=== PATIENT | male | born 1950 | race Native Hawaiian/Other Pacific Islander ===

== ENCOUNTER 2017-10-11 15:02 | Inpatient (IN) | payer OTHER, MEDICARE ==
[~2017-10-11] VITALS: Ht 177.8 cm; Wt 103.2 kg
[2017-10-11 15:24] VITALS: BP 142/80; PULSE 105; RESP 18; O2SAT 95
[2017-10-11] MEDS ORDERED: TETANUS/DIPHTHERIA TOXOID ADULT 0.5 ML VIAL IM ONE (15:30)
[2017-10-11] MEDS ORDERED: SILVER SULFADIAZINE 1% CR 400 GM JAR TOPICAL ONE (15:30)
[2017-10-11] MEDS ORDERED: FLUO1TAB3 PO (15:32)
[2017-10-11] MEDS ORDERED: LISI-515 PO (15:32)
[2017-10-11] MEDS ORDERED: METF500T PO (15:32)
[2017-10-11] MEDS ORDERED: HYDR12.56 PO (15:32)
[2017-10-11] MEDS ORDERED: METOCLOPRAMIDE HCL 10 MG/2 ML VIAL IV PUSH ONE (15:45)
[2017-10-11] MEDS ORDERED: SODIUM CHLOR 0.9% 1000 ML INJ 1,000 ML IV SCH ×2 (15:45→20:00)
[2017-10-11] MEDS ORDERED: MORPHINE SULFATE 4 MG/ML INJ IV PUSH ONE ×2 (15:45→17:45)
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
[2017-10-11] MEDS ORDERED: PROPOFOL 200 MG/20 ML AMP IV ONE (16:30)
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
[2017-10-11 17:05] VITALS: O2SAT 96
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
[2017-10-11 17:56] LABS: AUTOMATED NEUTROPHIL # 13.1 TH/MM3 (1.8-7.7); BASOPHIL % 0.3 % (0.0-2.0); EOSINOPHIL # 0.1 TH/MM3 (0-0.4); EOSINOPHIL % 0.4 % (0.0-4.0); HEMATOCRIT 37.2 % (39.0-51.0); HEMOGLOBIN 12.8 GM/DL (13.0-17.0); LYMPHOCYTE # 1.1 TH/MM3 (1.0-4.8); MEAN CORPUSCULAR HEMOGLOBIN 32.3 PG (27.0-34.0); MEAN CORPUSCULAR HGB CONC 34.3 % (32.0-36.0); MEAN PLATELET VOLUME 8.3 FL (7.0-11.0); MONO % 6.8 % (0.0-8.0); NEUT % 85.5 % (16.0-70.0); PLATELET COUNT 217 TH/MM3 (150-450); RED BLOOD COUNT 3.96 MIL/MM3 (4.50-5.90); RED CELL DISTRIBUTION WIDTH 13.3 % (11.6-17.2); WHITE BLOOD COUNT 15.3 TH/MM3 (4.0-11.0)
[2017-10-11 18:15] LABS: INTERNATIONAL NORMALIZED RATIO 1.1 RATIO; PROTHROMBIN TIME - PATIENT 10.9 SEC (9.8-11.6)
[2017-10-11 18:19] LABS: ALKALINE PHOSPHATASE 57 U/L (45-117); TOTAL BILIRUBIN ADULT 0.8 MG/DL (0.2-1.0)
[2017-10-11 18:31] LABS: ALBUMIN 3.5 GM/DL (3.4-5.0); ALT (GPT) 24 U/L (12-78); AST (GOT) 24 U/L (15-37); BICARBONATE 24.7 MEQ/L (21.0-32.0); BLOOD UREA NITROGEN 19 MG/DL (7-18); CALCIUM 8.1 MG/DL (8.5-10.1); CHLORIDE 111 MEQ/L (98-107); CREATININE 1.01 MG/DL (0.60-1.30); GLOMERULAR FILTRATION RATE 74 ML/MIN (>89); GLUCOSE,RANDOM 110 MG/DL (74-106); SODIUM (NA) 143 MEQ/L (136-145)
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
[2017-10-11] MEDS ORDERED: MORPHINE SULFATE 4 MG/ML INJ IV PRN (19:30)
[2017-10-11] MEDS ORDERED: NALOXONE HCL 0.4 MG/ML AMP IV PUSH PRN (19:30)
[2017-10-11] MEDS ORDERED: SODIUM CHLORIDE 0.9% FLUSH 10 ML FLUSH IV FLUSH PRN (19:30)
[2017-10-11] MEDS ORDERED: ACETAMINOPHEN 325 MG TAB PO PRN (19:30)
[2017-10-11] MEDS ORDERED: MAGNESIUM HYDROXIDE SUSP 30 ML CUP PO PRN (19:30)
[2017-10-11 19:53] VITALS: BP 137/73
[2017-10-11] MEDS ORDERED: ATOR20TA15 PO (19:53)
[2017-10-11] MEDS ORDERED: TRAZ1TAB14 PO (19:53)
[2017-10-11 20:00] VITALS: BP 143/73; PULSE 70; RESP 18; TEMP 98.5; O2SAT 97
[2017-10-11] MEDS ORDERED: LACTATED RINGER'S 1000 ML IV PRN (20:30)
[2017-10-11] MEDS ORDERED: SODIUM CHLORID 0.9% 500 ML IV PRN (20:30)
[2017-10-11] MEDS ORDERED: POVIDONE IODINE 5% (ANTISEPSIS KIT) 4 APPLICATIONS EACH NARE PRN (20:30)
[2017-10-11] MEDS ORDERED: CHLORHEXIDINE GLUCONATE 2 % 1 PACK (2 CLOTHS) TOPICAL PRN (20:30)
[2017-10-11] MEDS: SODIUM CHLORIDE 0.9% FLUSH 10 ML FLUSH IV FLUSH SCH (20:56)
[2017-10-11] MEDS: DOCUSATE SODIUM 50 MG/SENNA 8.6 MG TAB PO SCH (20:57)
[2017-10-11] MEDS: ACETAMINOPHEN/HYDROcodone 325 MG/5 MG TAB PO PRN (20:57)
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
[2017-10-12] VITALS (9 sets, daily range): BP systolic 123–146; BP diastolic 20–75; PULSE 63–75; RESP 12–18; TEMP 97.5–98.6; O2SAT 93–99
[2017-10-12] MEDS: ACETAMINOPHEN/HYDROcodone 325 MG/5 MG TAB PO PRN ×2 (01:45→09:21)
[2017-10-12 07:40] LABS: AUTOMATED NEUTROPHIL # 5.2 TH/MM3 (1.8-7.7); BASOPHIL % 0.4 % (0.0-2.0); EOSINOPHIL # 0.2 TH/MM3 (0-0.4); EOSINOPHIL % 3.1 % (0.0-4.0); HEMATOCRIT 35.5 % (39.0-51.0); HEMOGLOBIN 11.8 GM/DL (13.0-17.0); LYMPH % 19.6 % (9.0-44.0); LYMPHOCYTE # 1.6 TH/MM3 (1.0-4.8); MEAN CELL VOLUME 94.9 FL (80.0-100.0); MEAN CORPUSCULAR HEMOGLOBIN 31.4 PG (27.0-34.0); MEAN CORPUSCULAR HGB CONC 33.1 % (32.0-36.0); MEAN PLATELET VOLUME 8.5 FL (7.0-11.0); MONO % 11.1 % (0.0-8.0); MONOCYTE # 0.9 TH/MM3 (0-0.9); NEUT % 65.8 % (16.0-70.0); PLATELET COUNT 197 TH/MM3 (150-450); RED BLOOD COUNT 3.75 MIL/MM3 (4.50-5.90); RED CELL DISTRIBUTION WIDTH 13.2 % (11.6-17.2); WHITE BLOOD COUNT 7.9 TH/MM3 (4.0-11.0)
[2017-10-12 07:52] LABS: BICARBONATE 22.7 MEQ/L (21.0-32.0); CALCIUM 7.7 MG/DL (8.5-10.1); CREATININE 0.83 MG/DL (0.60-1.30)
[2017-10-12] MEDS: SODIUM CHLORIDE 0.9% FLUSH 10 ML FLUSH IV FLUSH SCH ×2 (09:00→21:00)
[2017-10-12] MEDS: DOCUSATE SODIUM 50 MG/SENNA 8.6 MG TAB PO SCH ×2 (09:21→21:41)
--- NOTE | 2017-10-12 11:40 | HHI.PR ---
Subjective Remarks Pt tells me that he is scheduled to go to the OR later today. Pain controlled at this time but at times the pain medication doesn't last too much. no nausea or vomiting. He denies any prior URI symptoms in the past explaining the lymphadenopathy seen on CT. He does have a PCP whom he follows w regularly, Dr. Torres. Objective Vitals Vital Signs Date Time Temp Pulse Resp B/P (MAP) Pulse Ox O2 Delivery O2 Flow Rate FiO2 10/12/17 11:23 16 10/12/17 10:46 93 10/12/17 04:00 97.8 63 14 123/70 (87) 95 10/12/17 00:00 98.2 69 12 125/67 (86) 95 10/11/17 20:00 98.5 70 18 143/73 (96) 97 10/11/17 19:53 72 18 137/73 (94) 96 10/11/17 17:05 96 10/11/17 15:24 105 18 142/80 (100) 95 Room Air I/O 10/11/17 10/11/17 10/11/17 10/12/17 10/12/17 10/12/17 07:00 15:00 23:00 07:00 15:00 23:00 Intake Total 240 ml Output Total 380 ml 400 ml Balance -380 ml -160 ml Intake Oral 240 ml Output Urine Total 380 ml 400 ml # Voids 1 Result Diagram: 10/12/17 0542 10/12/17 0542 Imaging Last Impressions Maxillofacial CT 10/11/17 1529 Signed Impressions: CONCLUSION: 1. No facial bone fracture seen. 2. Numerous mildly prominent submandibular and lateral compartment lymph nodes . Head CT 10/11/17 1529 Signed Impressions: CONCLUSION: 1. No acute findings in the brain. Cervical Spine CT 10/11/17 1529 Signed Impressions: CONCLUSION: 1. Moderate degenerative disc disease with minimal anterolisthesis of C4 on C5 . No fracture. No canal stenosis. Tibia/Fibula X-Ray 10/11/17 1526 Signed Impressions: CONCLUSION: Fracture/dislocation of the distal tibia (involving medial and posterior malleo more) and the proximal one third shaft fibula. Chest X-Ray 10/11/17 0000 Signed Impressions: CONCLUSION: The lungs are clear. Ankle X-Ray 10/11/17 0000 Signed Impressions: CONCLUSION: Fractures of the medial and posterior malleolus with anterior dislocation of th e distal tibia at the tibial plafond. Objective Remarks GENERAL: This is a well-nourished, well-developed patient, in no apparent distress. SKIN: Abrasion right elbow left upper extremity, left knee, right lower extremity in long leg splint CARDIOVASCULAR: Regular rate and rhythm RESPIRATORY: Clear to auscultation. Breath sounds equal bilaterally. GASTROINTESTINAL: Abdomen soft, non-tender, nondistended. MUSCULOSKELETAL: Right lower extremity with long leg splint in place A/P Problem List: (1) Fracture dislocation of right ankle ICD Code: S82.891A - Other fracture of right lower leg, initial encounter for closed fracture Status: Acute (2) Multiple abrasions ICD Code: T07.XXXA - Unspecified multiple injuries, initial encounter Status: Acute (3) Diabetes mellitus ICD Code: E11.9 - Type 2 diabetes mellitus without complications (4) Hyperlipidemia ICD Code: E78.5 - Hyperlipidemia, unspecified (5) Hypertension ICD Code: I10 - Essential (primary) hypertension (6) Anxiety and depression ICD Code: F41.9 - Anxiety disorder, unspecified; F32.9 - Major depressive disorder, single episode, unspecified Assessment and Plan (1) Fracture dislocation of right ankle CT maxillofacial reviewed and reveals no facial bone fracture is seen. Numerous mildly prominent submandibular and lateral compartment lymph nodes. Pt denies any recent URI symptoms or illnesses. Pt sees Dr. Torres, PCP regularly. I encouraged him to f/u w him for further outpatient f/u and pt is agreeable with plan. CT head reviewed and reveals no acute findings in the brain CT cervical spine reviewed reveals moderate degenerative disc disease with mild anterolisthesis of C4 on C5 no fracture. No canal stenosis X-ray right tibia-fibula reviewed and reveals fracture/dislocation of the distal tibia (involving the medial and posterior medial malleolus) and the proximal one third shaft fibula Patient underwent reduction of right ankle in the emergency department with conscious sedation is currently in long leg cast Right ankle x-ray post reduction reviewed and reveals fractures of the medial and posterior malleolus with anterior dislocation of the distal tibia and the tibial plafond CT chest reviewed reveals lungs are clear Orthopedic surgery evaluated the patient and will be taking him to the OR later today [place] and morphine as needed for pain Patient currently n.p.o. (2) Multiple abrasions wound care has been consulted. (3) Diabetes mellitus Patient takes metformin at home will hold at this time Accu-Cheks before meals at bedtime with sliding scale insulin coverage as needed (4) Hyperlipidemia Continue patient's home atorvastatin (5) Hypertension Continue patient's home lisinopril. hold HCTZ for now as pt's BP low normal. (6) Anxiety and depression Continue patient's home Prozac Discharge Planning OR later today Problem Qualifiers (1) Fracture dislocation of right ankle: Qualified Codes: S82.891A - Other fracture of right lower leg, initial encounter for closed fracture Mel Gallo MD Oct 12, 2017 11:40
[2017-10-12] MEDS ORDERED: PROPOFOL 200 MG/20 ML AMP IV ONE (12:00)
[2017-10-12] MEDS ORDERED: NEOSTIGMINE 5 MG/5 ML SYRINGE IV PUSH ONE (12:00)
[2017-10-12] MEDS ORDERED: ePHEDrine/NS 25 MG/5 ML SYRINGE IV ONE (12:00)
[2017-10-12] MEDS ORDERED: ONDANSETRON HCL 4 MG/2 ML VIAL IV PUSH ONE (12:00)
[2017-10-12] MEDS ORDERED: ROCURONIUM INJ 50 MG/5 ML SYRINGE IV PUSH ONE (12:00)
[2017-10-12] MEDS ORDERED: LIDOCAINE HCL 1% PF 5 ML SYRINGE OTHER ONE (12:00)
[2017-10-12] MEDS ORDERED: DEXAMETHASONE SOD PHOS 4 MG/ML VIAL IV ONE (12:00)
[2017-10-12] MEDS ORDERED: GLYCOPYRROLATE 1 MG/5 ML SYRINGE IV PUSH ONE (12:00)
[2017-10-12] MEDS ORDERED: BACITRACIN TOP OINT 15 GM TUBE ONE (12:49)
[2017-10-12] MEDS ORDERED: GENTAMICIN SULFATE 80 MG/2 ML VIAL ONE (12:49)
[2017-10-12] MEDS ORDERED: BUPIVACAINE HCL PF 0.5% 30 ML VIAL ONE (12:49)
[2017-10-12] MEDS ORDERED: ceFAZolin 2 GM PREMIX 50 ML ONE (13:53)
[2017-10-12] MEDS ORDERED: VANCOMYCIN HCL 1000 MG VIAL ONE (13:53)
[2017-10-12] MEDS ORDERED: MIDAZOLAM HCL 2 MG/2 ML VIAL ONE (14:59)
--- NOTE | 2017-10-12 15:33 | RADRPT ---
EXAM DATE: 10/12/2017 3:15 PM EDT AGE/SEX: 67 years / Male INDICATIONS: Open reduction internal fixation right ankle CLINICAL DATA: This is the patient's initial encounter. Patient reports that signs and symptoms have been present for 1 day and indicates a pain score of Nonresponsive. MEDICAL/SURGICAL HISTORY: Non-responsive. Non-responsive. COMPARISON: No prior exams available for comparison. FINDINGS: 2 images from the OR have been submitted. There is a plate along the lateral aspect of the fibula sec ured by multiple screws. There is a shorter plate along the medial aspect of the distal tibia and med ial malleolus. This is secured by 3 screws. There is also a screw extending from the anterior aspect of the distal tibia through to the posterior aspect of the distal tibia. Ankle is normally aligned. T he hardware is well placed. CONCLUSION: Successful ORIF. Electronically signed by: Deandre Veliz MD 10/12/2017 3:32 PM EDT
[2017-10-12] MEDS ORDERED: HYDR-3288 PO (15:37)
[2017-10-12] MEDS ORDERED: ASPI81CH6 CHEW (15:38)
[2017-10-12] MEDS ORDERED: DO NOT ADM ANY ANTICOAGULANT DRUGS PRN (15:40)
[2017-10-12] MEDS ORDERED: NURSING INFORMATION XX PRN (15:45)
[2017-10-12] MEDS ORDERED: MORPHINE SULFATE 4 MG/ML INJ IV PUSH PRN (15:45)
[2017-10-12] MEDS ORDERED: MAGNESIUM HYDROXIDE SUSP 30 ML CUP PO PRN (15:45)
[2017-10-12] MEDS ORDERED: PHARMACY INFORMATION XX ONE (15:45)
[2017-10-12] MEDS ORDERED: ACETAMINOPHEN/HYDROcodone 325 MG/7.5 MG TAB PO PRN (15:45)
[2017-10-12] MEDS ORDERED: Post-op Orders (for Pharmacy) XX ONE (15:45)
[2017-10-12] MEDS ORDERED: diphenhydrAMINE HCL 25 MG CAP PO PRN (15:45)
[2017-10-12] MEDS ORDERED: ONDANSETRON ODT 4 MG TAB PO PRN (16:15)
[2017-10-12] MEDS ORDERED: *morphine SULFATE 4 MG/ML PERIprocedure ONLY ONE (16:20)
[2017-10-12] MEDS: DEXT 5%-NACL 0.45% 1000 ML INJ 1,000 ML IV SCH ×2 (16:30→21:50)
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
[2017-10-12] MEDS ORDERED: traZODone HCL 50 MG TAB PO SCH (21:00)
[2017-10-12] MEDS ORDERED: ATORVASTATIN 40 MG TAB PO SCH (21:00)
--- NOTE | 2017-10-12 23:09 | EKG ---
Date Performed: 10/11/2017 Time Performed: 17:38:26 PTAGE: 67 years EKG: Sinus rhythm NONSPECIFIC T-WAVE ABNORMALITY BORDERLINE ECG NO PREVIOUS TRACING DOCTOR: Lisbeth Khanna Interpretating Date/Time 10/12/2017 22:59:17
[2017-10-13 00:15] VITALS: BP 135/75; PULSE 65; RESP 16; TEMP 97.8; O2SAT 97
[2017-10-13] MEDS: ACETAMINOPHEN/HYDROcodone 325 MG/7.5 MG TAB PO PRN ×3 (01:49→17:21)
[2017-10-13 04:45] VITALS: BP 125/56; PULSE 67; RESP 17; TEMP 97.2; O2SAT 96
[2017-10-13 06:58] LABS: HEMATOCRIT 34.3 % (39.0-51.0); HEMATOCRIT 34.8 % (39.0-51.0); HEMOGLOBIN 11.2 GM/DL (13.0-17.0); HEMOGLOBIN 11.3 GM/DL (13.0-17.0); MEAN CELL VOLUME 94.7 FL (80.0-100.0); MEAN CORPUSCULAR HEMOGLOBIN 30.8 PG (27.0-34.0); MEAN CORPUSCULAR HGB CONC 32.6 % (32.0-36.0); MEAN PLATELET VOLUME 9.1 FL (7.0-11.0); PLATELET COUNT 202 TH/MM3 (150-450); RED BLOOD COUNT 3.67 MIL/MM3 (4.50-5.90); RED CELL DISTRIBUTION WIDTH 12.9 % (11.6-17.2); WHITE BLOOD COUNT 12.9 TH/MM3 (4.0-11.0)
[2017-10-13 07:22] LABS: BICARBONATE 23.2 MEQ/L (21.0-32.0); CALCIUM 7.6 MG/DL (8.5-10.1); CREATININE 0.94 MG/DL (0.60-1.30)
[2017-10-13 08:00] VITALS: BP 141/66; PULSE 70; RESP 18; TEMP 98; O2SAT 97
[2017-10-13] MEDS: SODIUM CHLORIDE 0.9% FLUSH 10 ML FLUSH IV FLUSH SCH (08:13)
[2017-10-13] MEDS: DOCUSATE SODIUM 50 MG/SENNA 8.6 MG TAB PO SCH (08:13)
[2017-10-13] MEDS ORDERED: LISINOPRIL 5 MG TAB PO SCH (09:00)
[2017-10-13] MEDS ORDERED: FLUoxetine HCL 20 MG CAP PO SCH (09:00)
[2017-10-13] MEDS ORDERED: MULTIVITAMINS/MINERALS THERAPEUTIC TAB PO SCH (09:00)
--- NOTE | 2017-10-13 09:17 | PD.ORT.PN ---
Subjective Post Op Day #: 1 Subjective Remarks pain tolerable with meds Objective Vitals Vital Signs Date Time Temp Pulse Resp B/P (MAP) Pulse Ox O2 Delivery O2 Flow Rate FiO2 10/13/17 04:45 97.2 67 17 125/56 (79) 96 10/13/17 00:15 97.8 65 16 135/75 (95) 97 18 19:40 98.6 75 17 140/75 (96) 95 10/12/17 19:37 94 Nasal Cannula 2.00 10/12/17 17:10 97.8 71 17 143/75 (97) 99 10/12/17 17:00 98.0 67 18 142/20 (60) 93 10/12/17 16:55 71 14 138/72 (94) 100 Nasal Cannula 4 10/12/17 16:45 70 14 141/79 (99) 100 Nasal Cannula 4 10/12/17 16:30 68 14 133/77 (95) 99 Nasal Cannula 4 10/12/17 16:15 70 14 132/74 (93) 100 Nasal Cannula 4 10/12/17 16:00 70 14 132/70 (90) 100 Nasal Cannula 4 10/12/17 15:45 71 14 116/64 (81) 99 Nasal Cannula 4 10/12/17 15:39 97.8 75 14 115/58 (77) 95 Nasal Cannula 4 10/12/17 12:00 97.5 68 16 135/72 (93) 98 10/12/17 11:23 16 10/12/17 10:46 93 I/O 10/12/17 10/12/17 10/12/17 10/13/17 10/13/17 10/13/17 07:00 15:00 23:00 07:00 15:00 23:00 Intake Total 240 ml 500 ml 720 ml Output Total 400 ml 50 ml 1740 ml Balance -160 ml 450 ml -1020 ml Intake Oral 240 ml 720 ml Other 500 ml Output Urine Total 400 ml 1740 ml Estimated Blood Loss 50 ml # Voids 2 # Bowel Movements 0 Result Diagram: 10/13/17 0556 10/13/17 0556 Objective Remarks in bed, nad splint c/d/i cap refill able to move toes nvi and sensation intact Assessment & Plan Ortho Post Op Day #: 1 Problem List: Assessment and Plan s/p R ORIF trimalleolar ankle fracture NWB RLE maintain splint PT ortho stable f/up dr. casas 1-2 weeks Arjun Georges Oct 13, 2017 09:17
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
[2017-10-13 12:00] VITALS: BP_SYST 117; BP_SYST 134; BP_DIAS 65; BP_DIAS 71; PULSE 54; PULSE 62; RESP 16; TEMP 98; TEMP 98.3; O2SAT 96; O2SAT 97
[2017-10-13] MEDS ORDERED: MUPIROCIN 2% OINT 22 GM TUBE TOPICAL SCH (12:00)
[2017-10-13 12:35] VITALS: O2SAT 98
--- NOTE | 2017-10-13 12:40 | PD.WCN.NOT ---
Wound Consult Description: Received consult for wound management of bilateral upper and lower extremities. Communicated with: RN Amber stringer and Doctor Recommendation: 1.Please cleanse BLE and RLE abrasions with wound cleanser or normal saline and pat dry. 2. Apply oil emulsion gauze and just over open wounds and cover with dry gauze or ABD pad 3. Secure dressing with rolled gauze, tape and if needed Aki wrap. 4. Change dressings every other day or PRN if saturated or dislodged. Additional Information: Patient seen on for evaluation of bilateral upper and lower extremities.Removed gauze dressings in place to R upper arm, L wrist and R knee , to reveal abrasions with scant sero-sanguinous drainage that is without odor. All abrasions were cleansed with normal saline and patted. Applied oil emulsion gauze non-adherent dressing over all open abrasions and covered RLE and LUE with dry gauze, secured with rolled gauze. RLE dressing was further secured with AKI wrap. RUE wound was covered with ABD pad, secured with rolled gauze and tape. Recommendations are noted above. Fallon Petersen CRN Oct 13, 2017 12:40
[2017-10-13] MEDS ORDERED: WALKER WHEELS/F1 MIS (13:53)
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
[2017-10-13] MEDS ORDERED: ENOXAPARIN SODIUM 40 MG/0.4 ML SYRINGE SQ SCH (15:00)
[2017-10-13 19:37] VITALS: O2SAT 98
== END 2017-10-13 21:57 | disposition home health service (06) | DRG 494 ==
LOC: NEPC 15:02 → NEDA 18:37 → N06B 20:05
PROVIDERS: ADMIT Family Medicine; ATTEND Family Medicine
PROC: 0QSJ04Z Reposition Right Fibula with Internal Fixation Device, Open Approach (ICD-10-PCS; 2017-10-12)
PROC: 0QSG04Z Reposition Right Tibia with Internal Fixation Device, Open Approach (ICD-10-PCS; principal; 2017-10-12 13:28)
DX: S82.851A Displaced trimalleolar fracture of right lower leg, initial encounter for closed fracture (principal); I10 Essential (primary) hypertension; S40.811A Abrasion of right upper arm, initial encounter; S60.812A Abrasion of left wrist, initial encounter; S80.211A Abrasion, right knee, initial encounter; E78.5 Hyperlipidemia, unspecified; E11.9 Type 2 diabetes mellitus without complications; F41.8 Other specified anxiety disorders; M43.12 Spondylolisthesis, cervical region; Z87.891 Personal history of nicotine dependence; V29.9XXA Motorcycle rider (driver) (passenger) injured in unspecified traffic accident, initial encounter; Z79.84 Long term (current) use of oral hypoglycemic drugs
CPT/HCPCS: 16000; 28435; 70450; 70486; 71045; 72125; 73590; 73600; 76000; 80048; 80053; 82948; 85014; 85018; 85025; 85027; 85610; 85730; 86850; 86900; 86901; 90471; 90714; 93005; 94150; 96361; 96374; 96375; 96376; 99152; 99153; C1713; J0690; J1100; J1580; J1650; J2250; J2270; J2405; J2710; J2765; J3010; J3370; J7030

== ENCOUNTER 2017-11-13 20:05 | Inpatient (IN) ==
--- NOTE | 2017-11-13 22:48 | ED ---
HPI General Chief complaint: Respiratory Symptoms Stated complaint: SOB Time Seen by Provider: 11/13/17 21:55 History of Present Illness HPI narrative: This is a 67-year-old male who had ORIF to the right ankle on October 12 who presents to the emergency department with 2 days of increasing shortness of breath, lightheadedness and dizziness. He says yesterday in the middle of the day he had an episode that lasted for about 20 minutes where he was very short of breath and felt like he was going to pass out. The shortness of breath was moderate severity, worse when he exerted himself and walked across the room and improved with rest. He denied any chest pain but he did feel clammy and felt like he was going to pass out. The symptoms subsided but then today he had a similar episode again so he came to an urgent care who referred him to the emergency department. He has had an infection at his surgical site and is completed a course of antibiotic therapy. He has a history of hypertension and diabetes. He has been taking aspirin ever since his surgery but is not on any other blood thinners. He denies any dark stools. Related Data Home Medications Medication Instructions Recorded Confirmed atorvastatin 40 mg PO DAILY 11/14/17 11/14/17 fluoxetine [Prozac] 20 mg PO DAILY 11/14/17 11/14/17 lisinopril-hydrochlorothiazide 1 tab PO DAILY 11/14/17 11/14/17 metformin 500 mg PO BID 11/14/17 11/14/17 trazodone 150 mg PO DAILY 11/14/17 11/14/17 Previous Rx's Medication Instructions Recorded apixaban [Eliquis] 5 mg PO BID #120 tab 11/15/17 apixaban [Eliquis] 10 mg PO BID #13 tab 11/15/17 Allergies Allergy/AdvReac Type Severity Reaction Status Date / Time bee venom protein (honey bee) Allergy Hives Verified 11/13/17 21:15 [Bee sting] Review of Systems Except as stated in HPI: all other systems reviewed are negative [facility] Medical History Medical History Depression (Acute) Diabetes type 2, controlled (Acute) Hypertension (Acute) Status post ORIF of fracture of ankle (Acute) Social History Social History Second Hand Smoke Exposure: No Smoking Status: Never smoker How Often Do You Have a Drink Containing Alcohol: Monthly or less Recent Travel in [facility] within the Last 8 Weeks: No Recent Out of Country Travel within the Last 8 Weeks: No Exam Narrative Exam Narrative: GENERAL:Well appearing, no acute distress SKIN: wound over the medial malleolus with some yellow discoloration but no warmth or erythema, lateral sutures are well healing. HEAD: Atraumatic. Normocephalic. EYES: Pupils equal and round. No injection or drainage. ENT: Moist mucous membranes NECK: Trachea midline. CARDIOVASCULAR: Regular rate and rhythm. No murmur appreciated. RESPIRATORY: Clear to auscultation. Breath sounds equal bilaterally. GASTROINTESTINAL: Abdomen soft, non-tender, nondistended. MUSCULOSKELETAL: No obvious deformities. NEUROLOGICAL: Awake and alert. No obvious cranial nerve deficits. Moving all extremities. PSYCHIATRIC: Appropriate mood and affect; insight and judgment normal. Course Hospital Course: This is a patient was asked to follow-up on the patient's d-dimer. The d-dimer was positive. He has positive troponin as well. I have ordered a repeat troponin, coags, CTA of the chest for PE. Liter bolus of normal saline. Patient CTA of the chest is positive for bilateral PE. I was contacted by the radiologist. Due to the fact the patient has bilateral PE, positive troponin and an abnormal EKG showing moderate T-wave abnormality showing anterior ischemia the patient will be started on IV heparin. He will be admitted to cardiac telemetry. I have discussed the case with Dr. Nevarez for admission. She is aware of bilateral PEs. I have also ordered a stat echo. Patient is made of these findings and our recommendations today. Patient verbalizes understanding and agrees with the treatment plan and admission. Initial Documented Vital Signs Temperature 99.3 F 11/13/17 21:15 Pulse Rate 66 11/13/17 21:15 Respiratory Rate 24 11/13/17 21:15 Blood Pressure 131/73 11/13/17 21:15 Pulse Oximetry 96 11/13/17 21:15 Last Documented Vital Signs Temperature 97.8 F 11/15/17 15:00 Pulse Rate 62 11/15/17 17:00 Respiratory Rate 18 11/15/17 15:00 Blood Pressure 147/77 H 11/15/17 15:00 Pulse Oximetry 98 11/15/17 15:[address] [facility] Narrative Medical decision making narrative: This is a 67-year-old male who presents to the emergency department having had 2 episodes 2 days apart of lightheadedness and shortness of breath. He had a recent orthopedic surgery. He was placed on a monitor and an IV was established. Labs will be obtained via differential includes infection versus arrhythmia versus electrolyte abnormality versus pulmonary embolism. Case was discussed with Bubba Mei who will disposition the patient. I think he can be discharged home if labs are reassuring. Differential Diagnosis Differential Diagnosis: Pulmonary embolism, dehydration, electrolyte abnormality , wound infection, osteomyelitis Lab Data Lab results narrative: EKG: Sinus rhythm with moderate T-wave abnormality consistent with anterior ischemia in leads V1 through V5. No ST elevation. Normal rate, normal MI interval, normal axis. Result diagrams: 11/15/17 05:40 11/15/17 05:40 Lab Results 11/14/17 11/14/17 11/14/17 Range/Units 00:12 00:12 00:12 WBC 9.4 (4.0-11.0) th/mm3 RBC 4.01 L (4.50-5.90) mil/mm3 Hgb 12.4 L (13.0-17.0) gm/dL Hct 37.9 L (39.0-51.0) % MCV 94.5 (80.0-100.0) fL MCH 30.8 (27.0-34.0) pg MCHC 32.6 (32.0-36.0) % RDW 14.1 (11.6-17.2) % Plt Count 194 (150-450) th/mm3 MPV 8.3 (7.0-11.0) fL Neut % (Auto) 67.0 (16.0-70.0) % Lymph % (Auto) 23.5 (9.0-44.0) % Wallace % (Auto) 7.1 (0.0-8.0) % Eos % (Auto) 2.2 (0.0-4.0) % Baso % (Auto) 0.2 (0.0-2.0) % Neut # (Auto) 6.3 (1.8-7.7) th/mm3 Lymph # (Auto) 2.2 (1.0-4.8) th/mm3 Wallace # (Auto) 0.7 (0.0-0.9) th/mm3 Eos # (Auto) 0.2 (0.0-0.4) th/mm3 Baso # (Auto) 0.0 (0.0-0.2) th/mm3 WBC Differential . Differential Comment Auto diff final PT (9.8-11.6) sec INR Ratio APTT (24.3-30.1) sec D-Dimer Quant (PE/DVT) 7.95 H (0.00-0.50) mg/L FEU Sodium 142 (136-145) meq/L Potassium 3.9 (3.5-5.1) meq/L Chloride 109 H (98-107) meq/L Carbon Dioxide 26.1 (21.0-32.0) meq/L Anion Gap 7 (5-15) meq/L BUN 15 (7-18) mg/dL Creatinine 1.02 (0.60-1.30) mg/dL Estimated GFR 73 L (>89) mL/min POC Glucose (68-110) mg/dl Random Glucose 134 H (74-106) mg/dL Calcium 9.2 (8.5-10.1) mg/dL Total Bilirubin 0.3 (0.2-1.0) mg/dL AST 18 (15-37) U/L ALT 29 (12-78) U/L Alkaline Phosphatase 83 (45-117) U/L Troponin I 0.12 H (0.02-0.05) ng/mL Total Protein 7.3 (6.4-8.2) g/dL Albumin 3.7 (3.4-5.0) g/dL Urine Color (Yellw/Straw) Urine Clarity (Clear) Urine pH (5.0-8.5) Ur Specific [place] (1.002-1.035) Urine Protein (Neg-Trace) mg/dL Urine Glucose (UA) (Negative) mg/dL Urine Ketones (Negative) mg/dL Urine Occult Blood (Negative) Urine Nitrate (Negative) Urine Bilirubin (Negative) Urine Urobilinogen (Less than 2) mg/dL Ur Leukocyte Esterase (Negative) Urine WBC (0-5) /hpf Urine Mucus (Occasional) /lpf Nasal Screen MRSA (PCR) (Negative) 11/14/17 11/14/17 11/14/17 Range/Units 00:12 03:00 03:15 WBC (4.0-11.0) th/mm3 RBC (4.50-5.90) mil/mm3 Hgb (13.0-17.0) gm/dL Hct (39.0-51.0) % MCV (80.0-100.0) fL MCH (27.0-34.0) pg MCHC (32.0-36.0) % RDW (11.6-17.2) % Plt Count (150-450) th/mm3 MPV (7.0-11.0) fL Neut % (Auto) (16.0-70.0) % Lymph % (Auto) (9.0-44.0) % Wallace % (Auto) (0.0-8.0) % Eos % (Auto) (0.0-4.0) % Baso % (Auto) (0.0-2.0) % Neut # (Auto) (1.8-7.7) th/mm3 Lymph # (Auto) (1.0-4.8) th/mm3 Wallace # (Auto) (0.0-0.9) th/mm3 Eos # (Auto) (0.0-0.4) th/mm3 Baso # (Auto) (0.0-0.2) th/mm3 WBC Differential Differential Comment PT 11.0 (9.8-11.6) sec INR 1.1 Ratio APTT 24.3 (24.3-30.1) sec D-Dimer Quant (PE/DVT) (0.00-0.50) mg/L FEU Sodium (136-145) meq/L Potassium (3.5-5.1) meq/L Chloride (98-107) meq/L Carbon Dioxide (21.0-32.0) meq/L Anion Gap (5-15) meq/L BUN (7-18) mg/dL Creatinine (0.60-1.30) mg/dL Estimated GFR (>89) mL/min POC Glucose (68-110) mg/dl Random Glucose (74-106) mg/dL Calcium (8.5-10.1) mg/dL Total Bilirubin (0.2-1.0) mg/dL AST (15-37) U/L ALT (12-78) U/L Alkaline Phosphatase (45-117) U/L Troponin I 0.08 H (0.02-0.05) ng/mL Total Protein (6.4-8.2) g/dL Albumin (3.4-5.0) g/dL Urine Color Yellow (Yellw/Straw) Urine Clarity Clear (Clear) Urine pH 6.0 (5.0-8.5) Ur Specific [place] 1.005 (1.002-1.035) Urine Protein Negative (Neg-Trace) mg/dL Urine Glucose (UA) Negative (Negative) mg/dL Urine Ketones Negative (Negative) mg/dL Urine Occult Blood Negative (Negative) Urine Nitrate Negative (Negative) Urine Bilirubin Negative (Negative) Urine Urobilinogen Less than 2 (Less than 2) mg/dL Ur Leukocyte Esterase Negative (Negative) Urine WBC 1 (0-5) /hpf Urine Mucus Few H (Occasional) /lpf Nasal Screen MRSA (PCR) (Negative) 11/14/17 11/14/17 11/14/17 Range/Units 11:33 11:56 11:56 WBC 8.5 (4.0-11.0) th/mm3 RBC 3.57 L (4.50-5.90) mil/mm3 Hgb 11.2 L (13.0-17.0) gm/dL Hct 34.1 L (39.0-51.0) % MCV 95.5 (80.0-100.0) fL MCH 31.4 (27.0-34.0) pg MCHC 32.9 (32.0-36.0) % RDW 14.3 (11.6-17.2) % Plt Count 156 (150-450) th/mm3 MPV 8.4 (7.0-11.0) fL Neut % (Auto) (16.0-70.0) % Lymph % (Auto) (9.0-44.0) % Wallace % (Auto) (0.0-8.0) % Eos % (Auto) (0.0-4.0) % Baso % (Auto) (0.0-2.0) % Neut # (Auto) (1.8-7.7) th/mm3 Lymph # (Auto) (1.0-4.8) th/mm3 Wallace # (Auto) (0.0-0.9) th/mm3 Eos # (Auto) (0.0-0.4) th/mm3 Baso # (Auto) (0.0-0.2) th/mm3 WBC Differential Differential Comment PT (9.8-11.6) sec INR Ratio APTT 212.4 H* D (24.3-30.1) sec D-Dimer Quant (PE/DVT) (0.00-0.50) mg/L FEU Sodium (136-145) meq/L Potassium (3.5-5.1) meq/L Chloride (98-107) meq/L Carbon Dioxide (21.0-32.0) meq/L Anion Gap (5-15) meq/L BUN (7-18) mg/dL Creatinine (0.60-1.30) mg/dL Estimated GFR (>89) mL/min POC Glucose 122 H (68-110) mg/dl Random Glucose (74-106) mg/dL Calcium (8.5-10.1) mg/dL Total Bilirubin (0.2-1.0) mg/dL AST (15-37) U/L ALT (12-78) U/L Alkaline Phosphatase (45-117) U/L Troponin I (0.02-0.05) ng/mL Total Protein (6.4-8.2) g/dL Albumin (3.4-5.0) g/dL Urine Color (Yellw/Straw) Urine Clarity (Clear) Urine pH (5.0-8.5) Ur Specific [place] (1.002-1.035) Urine Protein (Neg-Trace) mg/dL Urine Glucose (UA) (Negative) mg/dL Urine Ketones (Negative) mg/dL Urine Occult Blood (Negative) Urine Nitrate (Negative) Urine Bilirubin (Negative) Urine Urobilinogen (Less than 2) mg/dL Ur Leukocyte Esterase (Negative) Urine WBC (0-5) /hpf Urine Mucus (Occasional) /lpf Nasal Screen MRSA (PCR) (Negative) 11/14/17 11/14/17 11/14/17 Range/Units 11:56 14:39 14:39 WBC (4.0-11.0) th/mm3 RBC (4.50-5.90) mil/mm3 Hgb (13.0-17.0) gm/dL Hct (39.0-51.0) % MCV (80.0-100.0) fL MCH (27.0-34.0) pg MCHC (32.0-36.0) % RDW (11.6-17.2) % Plt Count (150-450) th/mm3 MPV (7.0-11.0) fL Neut % (Auto) (16.0-70.0) % Lymph % (Auto) (9.0-44.0) % Wallace % (Auto) (0.0-8.0) % Eos % (Auto) (0.0-4.0) % Baso % (Auto) (0.0-2.0) % Neut # (Auto) (1.8-7.7) th/mm3 Lymph # (Auto) (1.0-4.8) th/mm3 Wallace # (Auto) (0.0-0.9) th/mm3 Eos # (Auto) (0.0-0.4) th/mm3 Baso # (Auto) (0.0-0.2) th/mm3 WBC Differential Differential Comment PT (9.8-11.6) sec INR Ratio APTT 85.8 H D (24.3-30.1) sec D-Dimer Quant (PE/DVT) (0.00-0.50) mg/L FEU Sodium (136-145) meq/L Potassium (3.5-5.1) meq/L Chloride (98-107) meq/L Carbon Dioxide (21.0-32.0) meq/L Anion Gap (5-15) meq/L BUN (7-18) mg/dL Creatinine (0.60-1.30) mg/dL Estimated GFR (>89) mL/min POC Glucose (68-110) mg/dl Random Glucose (74-106) mg/dL Calcium (8.5-10.1) mg/dL Total Bilirubin (0.2-1.0) mg/dL AST (15-37) U/L ALT (12-78) U/L Alkaline Phosphatase (45-117) U/L Troponin I 0.06 H 0.05 (0.02-0.05) ng/mL Total Protein (6.4-8.2) g/dL Albumin (3.4-5.0) g/dL Urine Color (Yellw/Straw) Urine Clarity (Clear) Urine pH (5.0-8.5) Ur Specific [place] (1.002-1.035) Urine Protein (Neg-Trace) mg/dL Urine Glucose (UA) (Negative) mg/dL Urine Ketones (Negative) mg/dL Urine Occult Blood (Negative) Urine Nitrate (Negative) Urine Bilirubin (Negative) Urine Urobilinogen (Less than 2) mg/dL Ur Leukocyte Esterase (Negative) Urine WBC (0-5) /hpf Urine Mucus (Occasional) /lpf Nasal Screen MRSA (PCR) (Negative) 11/14/17 11/14/17 11/15/17 Range/Units 20:31 20:44 05:30 WBC (4.0-11.0) th/mm3 RBC (4.50-5.90) mil/mm3 Hgb (13.0-17.0) gm/dL Hct (39.0-51.0) % MCV (80.0-100.0) fL MCH (27.0-34.0) pg MCHC (32.0-36.0) % RDW (11.6-17.2) % Plt Count (150-450) th/mm3 MPV (7.0-11.0) fL Neut % (Auto) (16.0-70.0) % Lymph % (Auto) (9.0-44.0) % Wallace % (Auto) (0.0-8.0) % Eos % (Auto) (0.0-4.0) % Baso % (Auto) (0.0-2.0) % Neut # (Auto) (1.8-7.7) th/mm3 Lymph # (Auto) (1.0-4.8) th/mm3 Wallace # (Auto) (0.0-0.9) th/mm3 Eos # (Auto) (0.0-0.4) th/mm3 Baso # (Auto) (0.0-0.2) th/mm3 WBC Differential Differential Comment PT (9.8-11.6) sec INR Ratio APTT 56.9 H D (24.3-30.1) sec D-Dimer Quant (PE/DVT) (0.00-0.50) mg/L FEU Sodium (136-145) meq/L Potassium (3.5-5.1) meq/L Chloride (98-107) meq/L Carbon Dioxide (21.0-32.0) meq/L Anion Gap (5-15) meq/L BUN (7-18) mg/dL Creatinine (0.60-1.30) mg/dL Estimated GFR (>89) mL/min POC Glucose 98 (68-110) mg/dl Random Glucose (74-106) mg/dL Calcium (8.5-10.1) mg/dL Total Bilirubin (0.2-1.0) mg/dL AST (15-37) U/L ALT (12-78) U/L Alkaline Phosphatase (45-117) U/L Troponin I (0.02-0.05) ng/mL Total Protein (6.4-8.2) g/dL Albumin (3.4-5.0) g/dL Urine Color (Yellw/Straw) Urine Clarity (Clear) Urine pH (5.0-8.5) Ur Specific [place] (1.002-1.035) Urine Protein (Neg-Trace) mg/dL Urine Glucose (UA) (Negative) mg/dL Urine Ketones (Negative) mg/dL Urine Occult Blood (Negative) Urine Nitrate (Negative) Urine Bilirubin (Negative) Urine Urobilinogen (Less than 2) mg/dL Ur Leukocyte Esterase (Negative) Urine WBC (0-5) /hpf Urine Mucus (Occasional) /lpf Nasal Screen MRSA (PCR) Not detected (Negative) 11/15/17 11/15/17 11/15/17 Range/Units 05:40 05:40 05:40 WBC 8.7 (4.0-11.0) th/mm3 RBC 3.71 L (4.50-5.90) mil/mm3 Hgb 11.5 L (13.0-17.0) gm/dL Hct 35.1 L (39.0-51.0) % MCV 94.7 (80.0-100.0) fL MCH 31.0 (27.0-34.0) pg MCHC 32.7 (32.0-36.0) % RDW 14.1 (11.6-17.2) % Plt Count 166 (150-450) th/mm3 MPV 8.1 (7.0-11.0) fL Neut % (Auto) 67.2 (16.0-70.0) % Lymph % (Auto) 22.3 (9.0-44.0) % Wallace % (Auto) 7.5 (0.0-8.0) % Eos % (Auto) 2.7 (0.0-4.0) % Baso % (Auto) 0.3 (0.0-2.0) % Neut # (Auto) 5.9 (1.8-7.7) th/mm3 Lymph # (Auto) 1.9 (1.0-4.8) th/mm3 Wallace # (Auto) 0.7 (0.0-0.9) th/mm3 Eos # (Auto) 0.2 (0.0-0.4) th/mm3 Baso # (Auto) 0.0 (0.0-0.2) th/mm3 WBC Differential . Differential Comment Auto diff final PT (9.8-11.6) sec INR Ratio APTT 69.5 H D (24.3-30.1) sec D-Dimer Quant (PE/DVT) (0.00-0.50) mg/L FEU Sodium 142 (136-145) meq/L Potassium 4.0 (3.5-5.1) meq/L Chloride 109 H (98-107) meq/L Carbon Dioxide 25.1 (21.0-32.0) meq/L Anion Gap 8 (5-15) meq/L BUN 10 (7-18) mg/dL Creatinine 0.91 (0.60-1.30) mg/dL Estimated GFR 83 L (>89) mL/min POC Glucose (68-110) mg/dl Random Glucose 102 (74-106) mg/dL Calcium 8.7 (8.5-10.1) mg/dL Total Bilirubin 0.5 (0.2-1.0) mg/dL AST 20 (15-37) U/L ALT 28 (12-78) U/L Alkaline Phosphatase 75 (45-117) U/L Troponin I (0.02-0.05) ng/mL Total Protein 6.8 (6.4-8.2) g/dL Albumin 3.2 L (3.4-5.0) g/dL Urine Color (Yellw/Straw) Urine Clarity (Clear) Urine pH (5.0-8.5) Ur Specific [place] (1.002-1.035) Urine Protein (Neg-Trace) mg/dL Urine Glucose (UA) (Negative) mg/dL Urine Ketones (Negative) mg/dL Urine Occult Blood (Negative) Urine Nitrate (Negative) Urine Bilirubin (Negative) Urine Urobilinogen (Less than 2) mg/dL Ur Leukocyte Esterase (Negative) Urine WBC (0-5) /hpf Urine Mucus (Occasional) /lpf Nasal Screen MRSA (PCR) (Negative) 11/15/17 Range/Units 11:18 WBC (4.0-11.0) th/mm3 RBC (4.50-5.90) mil/mm3 Hgb (13.0-17.0) gm/dL Hct (39.0-51.0) % MCV (80.0-100.0) fL MCH (27.0-34.0) pg MCHC (32.0-36.0) % RDW (11.6-17.2) % Plt Count (150-450) th/mm3 MPV (7.0-11.0) fL Neut % (Auto) (16.0-70.0) % Lymph % (Auto) (9.0-44.0) % Wallace % (Auto) (0.0-8.0) % Eos % (Auto) (0.0-4.0) % Baso % (Auto) (0.0-2.0) % Neut # (Auto) (1.8-7.7) th/mm3 Lymph # (Auto) (1.0-4.8) th/mm3 [place] # (Auto) (0.0-0.9) th/mm3 Eos # (Auto) (0.0-0.4) th/mm3 Baso # (Auto) (0.0-0.2) th/mm3 WBC Differential Differential Comment PT (9.8-11.6) sec INR Ratio APTT (24.3-30.1) sec D-Dimer Quant (PE/DVT) (0.00-0.50) mg/L FEU Sodium (136-145) meq/L Potassium (3.5-5.1) meq/L Chloride (98-107) meq/L Carbon Dioxide (21.0-32.0) meq/L Anion Gap (5-15) meq/L BUN (7-18) mg/dL Creatinine (0.60-1.30) mg/dL Estimated GFR (>89) mL/min POC Glucose 104 (68-110) mg/dl Random Glucose (74-106) mg/dL Calcium (8.5-10.1) mg/dL Total Bilirubin (0.2-1.0) mg/dL AST (15-37) U/L ALT (12-78) U/L Alkaline Phosphatase (45-117) U/L Troponin I (0.02-0.05) ng/mL Total Protein (6.4-8.2) g/dL Albumin (3.4-5.0) g/dL Urine Color (Yellw/Straw) Urine Clarity (Clear) Urine pH (5.0-8.5) Ur Specific [place] (1.002-1.035) Urine Protein (Neg-Trace) mg/dL Urine Glucose (UA) (Negative) mg/dL Urine Ketones (Negative) mg/dL Urine Occult Blood (Negative) Urine Nitrate (Negative) Urine Bilirubin (Negative) Urine Urobilinogen (Less than 2) mg/dL Ur Leukocyte Esterase (Negative) Urine WBC (0-5) /hpf Urine Mucus (Occasional) /lpf Nasal Screen MRSA (PCR) (Negative) Imaging Data Radiologist's impression: Chest CTA 11/14/17 02:01 CONCLUSION: Large bilateral central pulmonary emboli. Discharge Plan Discharge Disposition Patient Disposition: Disch W/Home Health Service Discharge Condition Condition: Stable Discharge Order Discharge Orders: Discharge Order (Routine); Ordered 11/15/17 Ordered By: Velia Amanda Discharge Details Anticipated Discharge Date: 11/15/17 Physicians Team ED Provider: Karely Reynoso ED Midlevel Provider: Bubba Pandey Primary Care Provider: Ranjan Torres V Attending Provider: Velia Amanda Status ED Status: Left Department Discharge Information Discharge Date/Time: 11/14/17 07:44
[2017-11-14 00:53] LABS: Baso % (Auto) 0.2 % (0.0-2.0); Eos # (Auto) 0.2 th/mm3 (0.0-0.4); Eos % (Auto) 2.2 % (0.0-4.0); Hematocrit 37.9 % (39.0-51.0); Hemoglobin 12.4 gm/dL (13.0-17.0); Lymph # (Auto) 2.2 th/mm3 (1.0-4.8); Lymph % (Auto) 23.5 % (9.0-44.0); Mean Corpuscular HGB Conc 32.6 % (32.0-36.0); Mean Corpuscular Hemoglobin 30.8 pg (27.0-34.0); Mean Corpuscular Volume 94.5 fL (80.0-100.0); Mean Platelet Volume 8.3 fL (7.0-11.0); Mono # (Auto) 0.7 th/mm3 (0.0-0.9); Mono % (Auto) 7.1 % (0.0-8.0); Neut # (Auto) 6.3 th/mm3 (1.8-7.7); Platelet Count 194 th/mm3 (150-450); Red Blood Count 4.01 mil/mm3 (4.50-5.90); Red Cell Distribution Width 14.1 % (11.6-17.2); White Blood Count 9.4 th/mm3 (4.0-11.0)
[2017-11-14 01:13] LABS: Alanine Aminotransferase 29 U/L (12-78); Albumin 3.7 g/dL (3.4-5.0); Anion Gap 7 meq/L (5-15); Aspartate Aminotransferase 18 U/L (15-37); Blood Urea Nitrogen 15 mg/dL (7-18); Calcium 9.2 mg/dL (8.5-10.1); Carbon Dioxide 26.1 meq/L (21.0-32.0); Chloride 109 meq/L (98-107); Glomerular Filtration Rate 73 mL/min (>89); Glucose,Random 134 mg/dL (74-106); Potassium 3.9 meq/L (3.5-5.1); Sodium 142 meq/L (136-145)
[2017-11-14 01:17] LABS: Alkaline Phosphatase 83 U/L (45-117); Total Protein 7.3 g/dL (6.4-8.2); Troponin I 0.12 ng/mL (0.02-0.05)
[2017-11-14] MEDS ORDERED: Sod Chloride 0.9% Inj 1,000 ML IV.SIG ONE (02:01)
--- NOTE | 2017-11-14 03:36 | CT ---
EXAM DATE: 11/14/2017 3:11 AM EDT AGE/SEX: 67 years / Male INDICATIONS: Shortness of breath. Recent ankle surgery. CLINICAL DATA: This is the patient's initial encounter. Patient reports that signs and symptoms have been present for 1 day and indicates a pain score of 0/10. MEDICAL/SURGICAL HISTORY: Hypertension. Diabetes mellitus type II. . Right ankle ORIF RADIATION DOSE: 23.21 CTDI (mGy) COMPARISON: No prior exams available for comparison. TECHNIQUE: Volumetric scanning was performed using a multi-row detector CT scanner during bolus infu walter of 75 ml Omnipaque 350 (iohexol) nonionic water-soluble contrast as a cumulative dose for multi ple exams. The data was post processed with a variety of visualization algorithms including full volu me maximum intensity projection and sliding thin slab reformation. Using automated exposure control and adjustment of the mA and/or kV according to patient size, radiation dose was kept as low as reaso nably achievable to obtain optimal diagnostic quality images. DICOM format image data is available e lectronically for review and comparison. FINDINGS: Pulmonary Arteries: Multiple filling defects are seen in the pulmonary arteries bilaterally. There i s involvement of the distal main right and distal main left pulmonary arteries as well as the proxima l upper and lower lobe branches bilaterally. Lung: The lungs are clear. Effusion: None. Mediastinum: Coronary artery calcifications. No enlarged lymph nodes. Aorta diameter within normal l imits. Other: The axilla is unremarkable. CONCLUSION: Large bilateral central pulmonary emboli. Electronically signed by: Alexi Perez MD 11/14/2017 3:34 AM EDT
[2017-11-14 03:48] LABS: Bilirubin,Urine Negative (Negative); Clarity,Urine Clear (Clear); Color,Urine Yellow (Yellw/Straw); Glucose,Urine (UA) Negative (Negative); Leukocyte Esterase,Urine Negative (Negative); Mucus,Urine Few /lpf (Occasional); Nitrite,Urine Negative (Negative); Specific Gravity,Urine 1.005 (1.002-1.035)
[2017-11-14] MEDS ORDERED: Heparin 10,000 UNITS/10 ML Vial (for IV use) IV.PUSH STA (03:48)
[2017-11-14] MEDS ORDERED: Bisacodyl 10 MG Supp RECTAL PRN (03:59)
[2017-11-14] MEDS ORDERED: Acetaminophen 325 MG Tablet PO PRN (03:59)
[2017-11-14] MEDS ORDERED: Temazepam 15 MG Capsule PO PRN (03:59)
[2017-11-14] MEDS ORDERED: Morphine Inj 4 MG/ML Vial IV.PUSH PRN (04:00)
[2017-11-14] MEDS ORDERED: Chlorhexidine Gluconate 2% 1 Pack (2 Cloths) TOPICAL PRN (04:00)
[2017-11-14] MEDS ORDERED: Dextrose 50% in Water 50 ML Vial IV.PUSH PRN (04:19)
--- NOTE | 2017-11-14 04:24 | P.HPIM ---
History of Present Illness Primary Care Physician: Ranjan Torres MD History of Present Illness: This is a 67-year-old male with a PMH of HTN, DM, Depression and ORIF Right Ankle by Dr. Cheng 10/12/17 who presented to the ER w/ c/o SOB x2 days. States SOB is moderate to severe, worse w/ exertion, associated w/ lightheadedness/ dizziness. Denies chest pain, cough or sick contacts. On arrival, BP 131/73, HR 66, O2 sat 96% on RA, Temp 99.3. CBC essentially unremarkable. Chemistry essentially unremarkable except for GFR 73. Troponin 0 0.12. D-dimer 7.95. UA negative. CTA Pulm w/ large bilateral central pulmonary emboli. Pt denies h /o DVT/PE in the past. Has been on ASA 81mg qd since right ankle surgery. - Diagnosis (1) PE (pulmonary thromboembolism) (2) Elevated troponin Inpatient Certification: I certify that the inpatient services were ordered in accordance with Medicare regulations governing the order. This includes certification that hospital inpatient services are reasonable and necessary and in the case of services not specified as inpatient-only under 42 CFR 419.22(n), that they are appropriately provided as inpatient services in accordance to with the 2-midnight benchmark under 43 CFR 412.3(e) Estimated Total Length of Stay (Days): 2 Plans for Post Hospital Care: Not yet determined Review of Systems All other systems reviewed negative except as stated [facility] - History History Provided By: Patient - Medical History Medical History: Medical History (Last Updated 11/13/17 @ 22:47 by Karely Reynoso MD) Depression Diabetes type 2, controlled Hypertension Status post ORIF of fracture of ankle - Travel History Recent Travel in the [place] Within the Last 8 Weeks: No Recent Travel Out of the Country Within the Last 8 Weeks: No Medications and Allergies Active Medications: Active Medications Acetaminophen (Tylenol) 650 mg PO Q4H PRN PRN Reason: Temp > 100.4 Al Hydroxide/Mg Hydroxide (Milk Of Magnesia Liq) 30 ml PO Q12H PRN PRN Reason: Mild Constipation Albuterol (Duoneb Neb (Prn)) 1 ampul NEB Q4HR NEB PRN PRN Reason: SOB/WHEEZING Bisacodyl (Dulcolax Supp) 10 mg RECTAL DAILY PRN PRN Reason: SEVERE CONSITIPATION Budesonide/Formoterol Fumarate (Symbicort 160/4.5 Mcg Inh) 2 puff INH BID [place]OMAS[place] Chlorhexidine Gluconate (Chlorhexidine 2% Cloth) 3 pack TOPICAL DAILY@0400 TOMASA Stop: 11/19/17 03:59 Chlorhexidine Gluconate (Chlorhexidine 2% Cloth) 3 pack TOPICAL DAILY@0400 PRN PRN Reason: Extra cloth needed Stop: 11/19/17 03:59 Heparin Sodium/Dextrose (Heparin/D5w 25,000 U/250 Ml) 25,000 unit in 250 mls @ 0 mls/hr IV.CONT TITRATE PRN; Protocol PRN Reason: Per Protocol Sodium Chloride (Ns Inj) 1,000 mls @ 100 mls/hr IV.CONT .Q10H TOMASA Lactulose (Lactulose Liq) 30 ml PO DAILY PRN PRN Reason: SEVERE CONSITIPATION Morphine Sulfate (Morphine Inj) 2 mg IV.PUSH Q4H PRN PRN Reason: CHEST PAIN Ondansetron HCl (Zofran Inj) 4 mg IV.PUSH Q6H PRN PRN Reason: NAUSEA OR VOMITING Senna/Docusate Sodium (Sheree-Colace) 1 tab PO BID [facility] Sennosides (Senokot) 17.2 mg PO Q12H PRN PRN Reason: Moderate Constipation Temazepam (Restoril) 15 mg PO HS PRN PRN Reason: INSOMNIA Allergies Allergy/AdvReac Type Severity Reaction Status Date / Time bee venom protein (honey bee) Allergy Hives Verified 11/13/17 21:15 [Bee sting] Exam Vital signs: Vital Signs 11/13/17 21:15 11/14/17 03:20 Temperature 99.3 F Pulse Rate 66 58 L Respiratory Rate 24 15 Blood Pressure 131/73 130/65 Pulse Oximetry 96 98 Intake & Output 11/13/17 11/13/17 11/14/17 06:59 18:59 06:59 Weight 97.522 kg Narrative: PE: GENERAL: Very pleasant middle-aged male in no acute distress. HEENT: PERRLA, EOMI. No scleral icterus or conjunctival pallor. No lid lag or facial droop. CARDIOVASCULAR: Regular rate and rhythm. No obvious murmurs to auscultation. No chest tenderness to palpation. RESPIRATORY: No obvious rhonchi or wheezing. Clear to auscultation. Breath sounds equal bilaterally. GASTROINTESTINAL: Abdomen soft, non-tender, nondistended. BS normal. MUSCULOSKELETAL: Extremities without clubbing, cyanosis, or edema. No obvious deformities. NEUROLOGICAL: Awake, alert and oriented x4. No focal neurologic deficits. Moving both upper and lower extremities spontaneously. Results - Labs CBC & Chem 7: 11/14/17 00:12 11/14/17 00:12 Labs: Short CBC 11/14/17 Range/Units 00:12 WBC 9.4 (4.0-11.0) th/mm3 Hgb 12.4 L (13.0-17.0) gm/dL Hct 37.9 L (39.0-51.0) % Plt Count 194 (150-450) th/mm3 BMP 11/14/17 00:12 Sodium 142 Potassium 3.9 Chloride 109 H Carbon Dioxide 26.1 BUN 15 Creatinine 1.02 Calcium 9.2 Cardiac Enzymes 11/14/17 Range/Units 00:12 Troponin I 0.12 H (0.02-0.05) ng/mL Liver Function 11/14/17 Range/Units 00:12 Total Bilirubin 0.3 (0.2-1.0) mg/dL AST 18 (15-37) U/L ALT 29 (12-78) U/L Alkaline Phosphatase 83 (45-117) U/L Albumin 3.7 (3.4-5.0) g/dL Urine 11/14/17 Range/Units 03:00 Urine Color Yellow (Yellw/Straw) Urine Clarity Clear (Clear) Urine pH 6.0 (5.0-8.5) Ur Specific [place] 1.005 (1.002-1.035) Urine Protein Negative (Neg-Trace) mg/dL Urine Glucose (UA) Negative (Negative) mg/dL - Imaging Impressions Chest CTA 11/14/17 02:01 CONCLUSION: Large bilateral central pulmonary emboli. Caprini VTE Risk Assessment Caprini VTE Risk Assessment: Moderate/High Risk (score >= 2) Caprini Risk Assessment Model: Point Value = 1 Point Value = 2 Point Value = 3 Point Value = 5 Age 41-60 Minor surgery BMI > 25 kg/m2 Swollen legs Varicose veins or History of unexplained or recurrent spontaneous Oral contraceptives or hormone replacement Sepsis (< 1 month) Serious lung disease, including pneumonia (< 1 month) Abnormal pulmonary function Acute myocardial infarction Congestive heart failure (< 1 month) History of inflammatory bowel disease Medical patient at bed rest Age 61-74 Arthroscopic surgery Major open surgery (> 45 min) Laparoscopic surgery (> 45 min) Malignancy Confined to bed (> 72 hours) Immobilizing plaster cast Central venous access Age >= 75 History of VTE Family history of VTE Factor V Leiden Prothrombin [id number] Lupus anticoagulant Anticardiolipin antibodies Elevated serum homocysteine Heparin-induced thrombocytopenia Other congenital or acquired thrombophilia Stroke (< 1 month) Elective arthroplasty Hip, pelvis, or leg fracture Acute spinal cord injury (< 1 month) Prophylaxis Regimen: Total Risk Factor Score Risk Level Prophylaxis Regimen 0-1 Low Early ambulation 2 Moderate Order ONE of the following: *Sequential Compression Device (SCD) *Heparin 5000 units SQ BID 3-4 Higher Order ONE of the following medications: *Heparin 5000 units SQ TID *Enoxaparin/Lovenox 40 mg SQ daily (WT < 150 kg, CrCl > 30 mL/min) *Enoxaparin/Lovenox 30 mg SQ daily (WT < 150 kg, CrCl > 10-29 mL/min) *Enoxaparin/Lovenox 30 mg SQ BID (WT < 150 kg, CrCl > 30 mL/min) AND/OR *Sequential Compression Device (SCD) 5 or more Highest Order ONE of the following medications: *Heparin 5000 units SQ TID (Preferred with Epidurals) *Enoxaparin/Lovenox 40 mg SQ daily (WT < 150 kg, CrCl > 30 mL/min) *Enoxaparin/Lovenox 30 mg SQ daily (WT < 150 kg, CrCl > 10-29 mL/min) *Enoxaparin/Lovenox 30 mg SQ BID (WT < 150 kg, CrCl > 30 mL/min) AND *Sequential Compression Device (SCD) Assessment and Plan - Assessment (1) PE (pulmonary thromboembolism) Code(s): I26.99 - Other pulmonary embolism without acute cor pulmonale Status : Acute (2) Elevated troponin Code(s): R74.8 - Abnormal levels of other serum enzymes Status: Acute - Plan A/P: 1. Acute PE: c/o SOB x2 days w/ exertion, recent ORIF Right Ankle 10/12/[address] Cheng, on ASA qd. D-Dimer elevated, CTA Pulm w/ large bilateral central PE. O2 sat normal. Pt in no respiratory distress, however in light of large/ central PE and elevated trop indicating strain, will admit for close monitoring to ICU. Start on Heparin gtt. DuoNeb prn, Symbicort bid for bronchospasm. Check Echo to eval for LV function/strain. Check serial cardiac enzymes for trend. 2. Elevated Trop: Trop 0.12, likely secondary to strain from large PE, no c/o chest pain, hemodynamically stable. Check serial cardiac enzymes for trend, telemetry, Morphine prn. 3. DVT Prophylaxis: Heparin gtt for acute PE 4. Social work for d/c planning as needed. 5. Case discussed w/ ER physician at length, labs/records/imaging reviewed by me.
[2017-11-14 04:33] LABS: Activated Partial Thrombo Time 24.3 sec (24.3-30.1); INR 1.1 Ratio
[2017-11-14] MEDS: Sod Chloride 0.9% Inj 1,000 ML IV.CONT SCH ×2 (05:03→17:33)
[2017-11-14] MEDS: Heparin Drip 25,000 UNIT/250 ML BAG IV.CONT PRN ×2 (05:04→22:17)
[2017-11-14] MEDS: Insulin NovoLOG Aspart Correctional Sugar Inj SQ SCH ×4 (08:11→22:41)
[2017-11-14] MEDS: Senna/Docusate Sodium 8.6/50 MG Tablet PO SCH ×2 (08:23→22:42)
[2017-11-14] MEDS: Budesonide-Formoterol 160/4.5 MCG 6 GM Inhaler INH SCH ×2 (09:13→22:42)
--- NOTE | 2017-11-14 09:33 | ECHRPT ---
Indication: SHORTNESS OF BREATH CONCLUSIONS The left ventricular systolic function is normal with an estimated ejection fraction in the range of 55-60%. Normal left ventricular size. Mild concentric left ventricular hypertrophy. No regional wall motion abnormalities are present. The left atrial size is mildly dilated. Trace mitral valve regurgitation. There is trace tricuspid valve regurgitation. The estimated pulmonary arterial pressure is 33.6 mmHg. The right ventricle is mildly dilated. The right ventricular systoilc function is mildly decreased. BP: / HR: Rhythm: Sinus MEASUREMENTS (Male / Female) Normal Values Technical Quality:Good 2D ECHO LV Diastolic Diameter PLAX 4.2 cm 4.2 - 5.9 / 3.9 - 5.3 cm LV Systolic Diameter PLAX 3.1 cm IVS Diastolic Thickness 1.3 cm 0.6 - 1.0 / 0.6 - 0.9 cm LVPW Diastolic Thickness 1.4 cm 0.6 - 1.0 / 0.6 - 0.9 cm LV Relative Wall Thickness 0.6 RV Internal Dim ED PLAX 3.2 cm LVOT Diameter 1.8 cm LA Systolic Diameter LX 4.7 cm 3.0 - 4.0 / 2.7 - 3.8 cm LV Ejection Fraction MOD 4C 53.3 % LV Ejection Fraction 4C AL 54.2 % M-MODE Aortic Root Diameter MM 2.5 cm LA Systolic Diameter MM 4.7 cm LA Ao Ratio MM 1.9 AV Cusp Separation MM 2.1 cm DOPPLER AV Peak Velocity 105.0 cm/s AV Peak Gradient 4.4 mmHg LVOT Peak Velocity 95.3 cm/s LVOT Peak Gradient 3.6 mmHg AV Area Cont Eq pk 2.3 cm MV Area PHT 4.1 cm Mitral E Point Velocity 67.1 cm/s Mitral A Point Velocity 106.0 cm/s Mitral E to A Ratio 0.6 LV E' Lateral Velocity 7.9 cm/s Mitral E to LV E' Lateral Ratio 8.5 LV E' Septal Velocity 5.9 cm/s Mitral E to LV E' Septal Ratio 11.5 TR Peak Velocity 243.0 cm/s TR Peak Gradient 23.6 mmHg Right Atrial Pressure 10.0 mmHg Pulmonary Artery Systolic Pressu 33.6 mmHg Right Ventricular Systolic Press 33.6 mmHg PV Peak Velocity 57.0 cm/s PV Peak Gradient 1.3 mmHg FINDINGS LEFT VENTRICLE The left ventricular systolic function is normal with an estimated ejection fraction in the range of 55-60%. Normal left ventricular size. Mild concentric left ventricular hypertrophy. No regional wall motion abnormalities are present. RIGHT VENTRICLE The right ventricle is mildly dilated. The right ventricular systoilc function is mildly decreased. LEFT ATRIUM The left atrial size is mildly dilated. RIGHT ATRIUM The right atrial size is normal. ATRIAL SEPTUM Normal atrial septal thickness without atrial level shunting by limited color doppler interrogation. AORTA The aortic root and proximal ascending aorta are normal in size on limited imaging. MITRAL VALVE Structurally normal mitral valve. Trace mitral valve regurgitation. AORTIC VALVE Trileaflet aortic valve. No aortic valve stenosis or regurgitation. TRICUSPID VALVE Structurally normal tricuspid valve. There is trace tricuspid valve regurgitation. The estimated pulmonary arterial pressure is 33.6 mmHg. PULMONARY VALVE No pulmonary valve regurgitation or stenosis. VESSELS The inferior vena cava is normal in size. PERICARDIUM No pericardial effusion. Jim Moraes MD (Electronically Signed) Final Date:14 November 2017 09:32 Amended: 14 November 2017 09:34
[2017-11-14] MEDS: Chlorhexidine Gluconate 2% 1 Pack (2 Cloths) TOPICAL SCH (12:28)
[2017-11-14 12:46] LABS: Hematocrit 34.1 % (39.0-51.0); Hemoglobin 11.2 gm/dL (13.0-17.0); Mean Corpuscular HGB Conc 32.9 % (32.0-36.0); Mean Corpuscular Hemoglobin 31.4 pg (27.0-34.0); Mean Corpuscular Volume 95.5 fL (80.0-100.0); Mean Platelet Volume 8.4 fL (7.0-11.0); Platelet Count 156 th/mm3 (150-450); Red Blood Count 3.57 mil/mm3 (4.50-5.90); Red Cell Distribution Width 14.3 % (11.6-17.2); White Blood Count 8.5 th/mm3 (4.0-11.0)
--- NOTE | 2017-11-14 15:05 | ECG ---
Date Performed: 11/14/2017 Time Performed: 01:17:24 PTAGE: 67 years EKG: Sinus rhythm MODERATE T-WAVE ABNORMALITY, CONSIDER ANTERIOR ISCHEMIA Since previous tracing, no significant taylor e noted ABNORMAL ECG PREVIOUS TRACING : 10/11/2017 17.38 DOCTOR: Baljeet Toure Interpretating Date/Time 11/14/2017 15:03:46
--- NOTE | 2017-11-14 17:07 | P.PN ---
Physical Exam Vital signs: Vital Signs 11/13/17 21:15 11/13/17 23:45 11/14/17 00:10 Temperature 99.3 F Pulse Rate 66 56 L Respiratory Rate 24 Blood Pressure 131/73 Pulse Oximetry 96 95 11/14/17 01:00 11/14/17 03:20 11/14/17 04:00 Temperature Pulse Rate 60 58 L 58 L Respiratory Rate 15 15 16 Blood Pressure 138/72 130/65 145/69 H Pulse Oximetry 95 98 99 11/14/17 04:20 11/14/17 05:00 11/14/17 06:00 Temperature Pulse Rate 56 L 56 L Respiratory Rate 18 15 Blood Pressure 150/65 H 153/85 H Pulse Oximetry 100 99 99 11/14/17 07:00 11/14/17 08:00 11/14/17 09:00 Temperature 98.0 F Pulse Rate 61 62 62 Respiratory Rate 18 18 Blood Pressure 155/61 H 167/96 H Pulse Oximetry 100 100 11/14/17 11:00 11/14/17 12:00 11/14/17 13:00 Temperature 97.7 F Pulse Rate 58 L 58 L 68 Respiratory Rate 18 Blood Pressure 135/79 Pulse Oximetry 100 11/14/17 14:00 11/14/17 15:00 11/14/17 16:00 Temperature 97.9 F Pulse Rate 64 56 L 72 Respiratory Rate 18 Blood Pressure 159/89 H Pulse Oximetry 97 11/14/17 16:58 Temperature Pulse Rate Respiratory Rate Blood Pressure Pulse Oximetry 98 Intake & Output 11/13/17 11/14/17 11/14/17 18:59 06:59 18:59 Intake Total 1000 / 1000 Output Total 450 / 450 Balance 550 / 550 Weight 97.522 kg Intake: IV 1000 / 1000 NS Inj 1,000 ML @ Wide Open IV. 1000 / 1000 SIG BOLUS ONE Rx#:[id number] Output: Urine 450 / 450 Narrative: Subjective: Patient is in bed he is a little bit anxious. Family at bedside. Patient is an anxious because of his diagnosis explained to the patient at length disease process he expressed understanding and he feels better and reassured. He denies having any chest pain at this time. Some shortness of breath he is saturating well on 2 L by nasal cannula. No nausea or vomiting no diaphoresis. Physical exam GENERAL: Very pleasant middle-aged male in no acute distress. CARDIOVASCULAR: Tachycardic. Regular rate and rhythm. No obvious murmurs to auscultation. No chest tenderness to palpation. RESPIRATORY: No obvious rhonchi or wheezing. Clear to auscultation. Breath sounds equal bilaterally. GASTROINTESTINAL: Abdomen soft, non-tender, nondistended. BS normal. MUSCULOSKELETAL: Right leg with the boot on. NEUROLOGICAL: Awake, alert and oriented x4. No focal neurologic deficits. Moving both upper and lower extremities spontaneously. Assessment and Plan A/P: 1. Acute PE: c/o SOB x2 days w/ exertion, recent ORIF Right Ankle 10/12/[address] Cheng, on ASA qd. D-Dimer elevated, CTA Pulm w/ large bilateral central PE. O2 sat normal. Pt in no respiratory distress, however in light of large/ central PE and elevated trop indicating strain, will admit for close monitoring to ICU. Start on Heparin gtt. DuoNeb prn, Symbicort bid for bronchospasm. Check Echo to eval for LV function/strain. Serial cardiac enzymes trending down the back to normal. 2. Elevated Trop: Trop 0.12, likely secondary to strain from large PE, no c/o chest pain, hemodynamically stable. Troponins are trending down back to normal. Monitor on telemetry, Morphine prn. DVT Prophylaxis: Heparin gtt for acute PE Case management consulted for d/c planning as needed. Discussed with the patient, family at bedside, nurse Results - Labs CBC & Chem 7: 11/14/17 11:56 11/14/17 00:12 Laboratory Results - last 24 hr 11/14/17 11/14/17 11/14/17 00:12 00:12 00:12 WBC 9.4 RBC 4.01 L Hgb 12.4 L Hct 37.9 L MCV 94.5 MCH 30.8 MCHC 32.6 RDW 14.1 Plt Count 194 MPV 8.3 Neut % (Auto) 67.0 Lymph % (Auto) 23.5 [place] % (Auto) 7.1 Eos % (Auto) 2.2 Baso % (Auto) 0.2 Neut # (Auto) 6.3 Lymph # (Auto) 2.2 M[place]one # (Auto) 0.7 Eos # (Auto) 0.2 Baso # (Auto) 0.0 WBC Differential . Differential Comment Auto diff final PT INR APTT D-Dimer Quant (PE/DVT) 7.95 H Sodium 142 Potassium 3.9 Chloride 109 H Carbon Dioxide 26.1 Anion Gap 7 BUN 15 Creatinine 1.02 Estimated GFR 73 L POC Glucose Random Glucose 134 H Calcium 9.2 Total Bilirubin 0.3 AST 18 ALT 29 Alkaline Phosphatase 83 Troponin I 0.12 H Total Protein 7.3 Albumin 3.7 Urine Color Urine Clarity Urine pH Ur Specific [place] Urine Protein Urine Glucose (UA) Urine Ketones Urine Occult Blood Urine Nitrate Urine Bilirubin Urine Urobilinogen Ur Leukocyte Esterase Urine WBC Urine Mucus 11/14/17 11/14/17 11/14/17 00:12 03:00 03:15 WBC RBC Hgb Hct MCV MCH MCHC RDW Plt Count MPV Neut % (Auto) Lymph % (Auto) [place] % (Auto) Eos % (Auto) Baso % (Auto) Neut # (Auto) Lymph # (Auto) [place] # (Auto) Eos # (Auto) Baso # (Auto) WBC Differential Differential Comment PT 11.0 INR 1.1 APTT 24.3 D-Dimer Quant (PE/DVT) Sodium Potassium Chloride Carbon Dioxide Anion Gap BUN Creatinine Estimated GFR POC Glucose Random Glucose Calcium Total Bilirubin AST ALT Alkaline Phosphatase Troponin I 0.08 H Total Protein Albumin Urine Color Yellow Urine Clarity Clear Urine pH 6.0 Ur Specific [place] 1.005 Urine Protein Negative Urine Glucose (UA) Negative Urine Ketones Negative Urine Occult Blood Negative Urine Nitrate Negative Urine Bilirubin Negative Urine Urobilinogen Less than 2 Ur Leukocyte Esterase Negative Urine WBC 1 Urine Mucus Few H 11/14/17 11/14/17 11/14/17 11:33 11:56 11:56 WBC 8.5 RBC 3.57 L Hgb 11.2 L Hct 34.1 L MCV 95.5 MCH 31.4 MCHC 32.9 RDW 14.3 Plt Count 156 MPV 8.4 Neut % (Auto) Lymph % (Auto) [place] % (Auto) Eos % (Auto) Baso % (Auto) Neut # (Auto) Lymph # (Auto) [place] # (Auto) Eos # (Auto) Baso # (Auto) WBC Differential Differential Comment PT INR APTT 212.4 H* D D-Dimer Quant (PE/DVT) Sodium Potassium Chloride Carbon Dioxide Anion Gap BUN Creatinine Estimated GFR POC Glucose 122 H Random Glucose Calcium Total Bilirubin AST ALT Alkaline Phosphatase Troponin I Total Protein Albumin Urine Color Urine Clarity Urine pH Ur Specific [place] Urine Protein Urine Glucose (UA) Urine Ketones Urine Occult Blood Urine Nitrate Urine Bilirubin Urine Urobilinogen Ur Leukocyte Esterase Urine WBC Urine Mucus 11/14/17 11/14/17 11/14/17 11:56 14:39 14:39 WBC RBC Hgb Hct MCV MCH MCHC RDW Plt Count MPV Neut % (Auto) Lymph % (Auto) [place] % (Auto) Eos % (Auto) Baso % (Auto) Neut # (Auto) Lymph # (Auto) [place] # (Auto) Eos # (Auto) Baso # (Auto) WBC Differential Differential Comment PT INR APTT 85.8 H D D-Dimer Quant (PE/DVT) Sodium Potassium Chloride Carbon Dioxide Anion Gap BUN Creatinine Estimated GFR POC Glucose Random Glucose Calcium Total Bilirubin AST ALT Alkaline Phosphatase Troponin I 0.06 H 0.05 Total Protein Albumin Urine Color Urine Clarity Urine pH Ur Specific [place] Urine Protein Urine Glucose (UA) Urine Ketones Urine Occult Blood Urine Nitrate Urine Bilirubin Urine Urobilinogen Ur Leukocyte Esterase Urine WBC Urine Mucus - Imaging Impressions Chest CTA 11/14/17 02:01 CONCLUSION: Large bilateral central pulmonary emboli. Assessment and Plan - Assessment (1) PE (pulmonary thromboembolism) Code(s): I26.99 - Other pulmonary embolism without acute cor pulmonale Status : Acute (2) Elevated troponin Code(s): R74.8 - Abnormal levels of other serum enzymes Status: Acute
[2017-11-15] MEDS: Sod Chloride 0.9% Inj 1,000 ML IV.CONT SCH ×2 (01:15→10:43)
[2017-11-15] MEDS: Chlorhexidine Gluconate 2% 1 Pack (2 Cloths) TOPICAL SCH (05:25)
[2017-11-15 06:03] LABS: Baso % (Auto) 0.3 % (0.0-2.0); Eos # (Auto) 0.2 th/mm3 (0.0-0.4); Eos % (Auto) 2.7 % (0.0-4.0); Hematocrit 35.1 % (39.0-51.0); Hemoglobin 11.5 gm/dL (13.0-17.0); Lymph # (Auto) 1.9 th/mm3 (1.0-4.8); Lymph % (Auto) 22.3 % (9.0-44.0); Mean Corpuscular HGB Conc 32.7 % (32.0-36.0); Mean Corpuscular Volume 94.7 fL (80.0-100.0); Mean Platelet Volume 8.1 fL (7.0-11.0); Mono # (Auto) 0.7 th/mm3 (0.0-0.9); Mono % (Auto) 7.5 % (0.0-8.0); Neut # (Auto) 5.9 th/mm3 (1.8-7.7); Neut % (Auto) 67.2 % (16.0-70.0); Platelet Count 166 th/mm3 (150-450); Red Blood Count 3.71 mil/mm3 (4.50-5.90); Red Cell Distribution Width 14.1 % (11.6-17.2); White Blood Count 8.7 th/mm3 (4.0-11.0)
[2017-11-15 07:00] LABS: Albumin 3.2 g/dL (3.4-5.0); Anion Gap 8 meq/L (5-15); Aspartate Aminotransferase 20 U/L (15-37); Blood Urea Nitrogen 10 mg/dL (7-18); Calcium 8.7 mg/dL (8.5-10.1); Carbon Dioxide 25.1 meq/L (21.0-32.0); Chloride 109 meq/L (98-107); Glomerular Filtration Rate 83 mL/min (>89); Glucose,Random 102 mg/dL (74-106); Sodium 142 meq/L (136-145)
[2017-11-15 07:01] LABS: Alanine Aminotransferase 28 U/L (12-78)
[2017-11-15 07:03] LABS: Alkaline Phosphatase 75 U/L (45-117); Total Protein 6.8 g/dL (6.4-8.2)
[2017-11-15] MEDS: Insulin NovoLOG Aspart Correctional Sugar Inj SQ SCH ×3 (07:29→16:17)
[2017-11-15 08:13] VITALS: RESP 18
[2017-11-15] MEDS: Senna/Docusate Sodium 8.6/50 MG Tablet PO SCH (08:50)
[2017-11-15] MEDS: Budesonide-Formoterol 160/4.5 MCG 6 GM Inhaler INH SCH (08:50)
--- NOTE | 2017-11-15 11:27 | P.DS ---
Date of admission: 11/14/17 03:59 Primary care physician: Ranjan Torres MD Brief History from admission: This is a 67-year-old male with a PMH of HTN, DM, Depression and ORIF Right Ankle by Dr. Cheng 10/12/17 who presented to the ER w/ c/o SOB x2 days. States SOB is moderate to severe, worse w/ exertion, associated w/ lightheadedness/ dizziness. Denies chest pain, cough or sick contacts. On arrival, BP 131/73, HR 66, O2 sat 96% on RA, Temp 99.3. CBC essentially unremarkable. Chemistry essentially unremarkable except for GFR 73. Troponin 0 0.12. D-dimer 7.95. UA negative. CTA Pulm w/ large bilateral central pulmonary emboli. Pt denies h /o DVT/PE in the past. Has been on ASA 81mg qd since right ankle surgery. DS: Diagnosis - Discharge Diagnosis (1) PE (pulmonary thromboembolism) Status: Acute (2) Elevated troponin Status: Acute DS: Medications - Discharge Medications Prescriptions: apixaban [Eliquis] 5 mg PO BID #120 tab apixaban [Eliquis] 10 mg PO BID #13 tab DS: Summary Hospital Course: Clinical Update at Discharge Feels improved today. She is saturating well on room air. No chest pain or shortness of breath. Physical therapy consulted recommends PT at home. Switch to Eliquis. No headaches change in vision. Denies nausea vomiting no diarrhea or constipation. Eating fairly well. Physical exam GENERAL: Very pleasant middle-aged male in no acute distress. CARDIOVASCULAR: Regular rate and rhythm. No obvious murmurs to auscultation. No chest tenderness to palpation. RESPIRATORY: No obvious rhonchi or wheezing. Clear to auscultation. Breath sounds equal bilaterally. GASTROINTESTINAL: Abdomen soft, non-tender, nondistended. BS normal. MUSCULOSKELETAL: Right leg with the boot on. NEUROLOGICAL: Awake, alert and oriented x4. No focal neurologic deficits. Moving both upper and lower extremities spontaneously. Assessment and Plan A/P: 1. Acute PE: c/o SOB x2 days w/ exertion, recent ORIF Right Ankle 10/12/[address] Cheng, on ASA qd. D-Dimer elevated, CTA Pulm w/ large bilateral central PE. O2 sat normal. Pt in no respiratory distress, however in light of large/ central PE and elevated trop indicating strain, will admit for close monitoring to ICU. Was started on Heparin gtt. Switch to PO eliquis. DuoNeb prn, Symbicort bid for bronchospasm. 2D Echo reviewed failry normal/ EF 55% Serial cardiac enzymes trending down and back to normal. 2. Elevated Trop: Trop 0.12, likely secondary to strain from large PE, no c/o chest pain, hemodynamically stable. Troponins are trending down back to normal. Monitored on telemetry. 3. Chronic medical problems. Restart home meds DVT Prophylaxis: Heparin gtt for acute PE Case management consulted for d/c planning as needed. Patient improved significantly. He is saturating well on room air. Discharge home with home health in stable condition to follow-up with PCP and consultants as outpatient. Says has an appointment with orthopedic doctor. - Time Spent with Patient Total time spent providing and/or coordinating discharge services: Exam Vital signs: Vital Signs 11/14/17 12:00 11/14/17 13:00 11/14/17 14:00 Temperature Pulse Rate 58 L 68 64 Respiratory Rate Blood Pressure Pulse Oximetry 11/14/17 15:00 11/14/17 16:00 11/14/17 16:58 Temperature 97.9 F Pulse Rate 56 L 72 Respiratory Rate 18 Blood Pressure 159/89 H Pulse Oximetry 97 98 11/14/17 17:00 11/14/17 18:00 11/14/17 19:00 Temperature 98.8 F Pulse Rate 84 68 76 Respiratory Rate 20 Blood Pressure 154/86 H Pulse Oximetry 99 11/14/17 20:00 11/14/17 21:00 11/14/17 22:00 Temperature Pulse Rate 52 L 50 L 50 L Respiratory Rate Blood Pressure Pulse Oximetry 99 98 11/14/17 23:00 11/15/17 00:00 11/15/17 01:00 Temperature 98.3 F Pulse Rate 54 L 62 50 L Respiratory Rate 16 Blood Pressure 162/83 H Pulse Oximetry 99 11/15/17 02:00 11/15/17 03:00 11/15/17 04:00 Temperature 98.0 F Pulse Rate 52 L 50 L 54 L Respiratory Rate 14 Blood Pressure 156/96 H Pulse Oximetry 99 11/15/17 05:00 11/15/17 06:00 11/15/17 07:00 Temperature 97.4 F L Pulse Rate 52 L 50 L 62 Respiratory Rate 18 Blood Pressure 172/96 H Pulse Oximetry 96 11/15/17 08:00 11/15/17 09:00 11/15/17 10:00 Temperature Pulse Rate 62 64 68 Respiratory Rate Blood Pressure Pulse Oximetry 96 Intake & Output 11/14/17 11/15/17 11/15/17 18:59 06:59 18:59 Intake Total 1920 / 1920 490 / 490 Output Total 650 / 650 800 / 800 Balance 1270 / 1270 -310 / -310 Weight 98.5 kg Intake: IV 1000 / 1000 250 / 250 Heparin/D5W 25,000 U/250 mL 25, 250 / 250 000 unit In 250 ml @ Per Protocol IV.CONT TITRATE PRN Rx #:[id number] NS Inj 1,000 ML @ 100 mls/hr IV 1000 / 1000 .CONT .Q10H TOMASA Rx#:[id number] Oral 920 / 920 240 / 240 Output: Urine 650 / 650 800 / 800 Other: # Bowel Movements 1 Results Procedures completed during hospitalization: No procedures Labs on day of discharge: Labs from last 24 hours 11/15/17 11/15/17 11/15/17 05:40 05:40 05:40 WBC 8.7 RBC 3.71 L Hgb 11.5 L Hct 35.1 L MCV 94.7 MCH 31.0 MCHC 32.7 RDW 14.1 Plt Count 166 MPV 8.1 Neut % (Auto) 67.2 Lymph % (Auto) 22.3 Howard % (Auto) 7.5 Eos % (Auto) 2.7 Baso % (Auto) 0.3 Neut # (Auto) 5.9 Lymph # (Auto) 1.9 Howard # (Auto) 0.7 Eos # (Auto) 0.2 Baso # (Auto) 0.0 WBC Differential . Differential Comment Auto diff final APTT 69.5 H D Sodium 142 Potassium 4.0 Chloride 109 H Carbon Dioxide 25.1 Anion Gap 8 BUN 10 Creatinine 0.91 Estimated GFR 83 L POC Glucose Random Glucose 102 Calcium 8.7 Total Bilirubin 0.5 AST 20 ALT 28 Alkaline Phosphatase 75 Troponin I Total Protein 6.8 Albumin 3.2 L Nasal Screen MRSA (PCR) 11/15/17 11/14/17 11/14/17 05:30 20:44 20:31 WBC RBC Hgb Hct MCV MCH MCHC RDW Plt Count MPV Neut % (Auto) Lymph % (Auto) Howard % (Auto) Eos % (Auto) Baso % (Auto) Neut # (Auto) Lymph # (Auto) Howard # (Auto) Eos # (Auto) Baso # (Auto) WBC Differential Differential Comment APTT 56.9 H D Sodium Potassium Chloride Carbon Dioxide Anion Gap BUN Creatinine Estimated GFR POC Glucose 98 Random Glucose Calcium Total Bilirubin AST ALT Alkaline Phosphatase Troponin I Total Protein Albumin Nasal Screen MRSA (PCR) Not detected 11/14/17 11/14/17 11/14/17 14:39 14:39 11:56 WBC RBC Hgb Hct MCV MCH MCHC RDW Plt Count MPV Neut % (Auto) Lymph % (Auto) Howard % (Auto) Eos % (Auto) Baso % (Auto) Neut # (Auto) Lymph # (Auto) Howard # (Auto) Eos # (Auto) Baso # (Auto) WBC Differential Differential Comment APTT 85.8 H D Sodium Potassium Chloride Carbon Dioxide Anion Gap BUN Creatinine Estimated GFR POC Glucose Random Glucose Calcium Total Bilirubin AST ALT Alkaline Phosphatase Troponin I 0.05 0.06 H Total Protein Albumin Nasal Screen MRSA (PCR) 11/14/17 11/14/17 11/14/17 11:56 11:56 11:33 WBC 8.5 RBC 3.57 L Hgb 11.2 L Hct 34.1 L MCV 95.5 MCH 31.4 MCHC 32.9 RDW 14.3 Plt Count 156 MPV 8.4 Neut % (Auto) Lymph % (Auto) Howard % (Auto) Eos % (Auto) Baso % (Auto) Neut # (Auto) Lymph # (Auto) Howard # (Auto) Eos # (Auto) Baso # (Auto) WBC Differential Differential Comment APTT 212.4 H* D Sodium Potassium Chloride Carbon Dioxide Anion Gap BUN Creatinine Estimated GFR POC Glucose 122 H Random Glucose Calcium Total Bilirubin AST ALT Alkaline Phosphatase Troponin I Total Protein Albumin Nasal Screen MRSA (PCR) - Impressions ITS Impressions Chest CTA 11/14/17 02:01 CONCLUSION: Large bilateral central pulmonary emboli. Discharge Plan - Discharge Disposition Patient Disposition: /Home Health Service - Discharge Condition Condition: Stable - Discharge Order Discharge Orders: Discharge Order (Routine); Ordered 11/15/17 Ordered By: Velia Amanda - Discharge Details Anticipated Discharge Date: 11/15/17 - Physicians Team Primary Care Provider: Ranjan Torres V Attending Provider: Velia Amanda
[2017-11-15 11:43] VITALS: O2SAT 98
[2017-11-15] MEDS ORDERED: traZODone 100 MG Tablet PO SCH (12:00)
[2017-11-15] MEDS ORDERED: Lisinopril 20 MG Tablet PO SCH (12:00)
[2017-11-15] MEDS ORDERED: FLUoxetine 20 MG Capsule PO SCH (12:00)
[2017-11-15] MEDS ORDERED: hydroCHLOROthiazide 25 MG Tablet PO SCH (12:00)
--- NOTE | 2017-11-15 15:09 | P.DCO ---
- Physical Therapy Order: Evaluate and treat - Home Health Nursing Order: Medical education, Signs/symptoms of disease process, Medication education-adverse effect, Nursing assessment with vital signs - Certification I have seen patient Tito Diaz on 11/15/17. My clinical findings support the need for the requested home health care services because: Limited mobility due to disease progression I certify that my clinical findings support that this patient is homebound because: Post-op weakness
[2017-11-15 15:13] VITALS: BP 147/77; TEMP 97.8
[2017-11-15 17:19] VITALS: PULSE 62
== END 2017-11-15 17:59 | disposition home health service (06) ==
LOC: NEPD 20:05 → NEDA 11-14 03:59 → HCIS 11-14 07:27
PROVIDERS: ADMIT Hospitalist; ATTEND Hospitalist
DX: Z91.030 Bee allergy status; Z79.84 Long term (current) use of oral hypoglycemic drugs; I10 Essential (primary) hypertension; I26.99 Other pulmonary embolism without acute cor pulmonale; E11.9 Type 2 diabetes mellitus without complications; F32.9 Major depressive disorder, single episode, unspecified; J98.01 Acute bronchospasm; R74.8 Abnormal levels of other serum enzymes